=== PATIENT | female | born 1980 | race Caucasian/White ===

== ENCOUNTER 2016-09-29 19:45 | Emergency (ER) | payer OTHER ==
[~2016-09-29] VITALS: Ht 170.2 cm; Wt 144.5 kg
[2016-09-29 19:56] VITALS: BP 149/85; TEMP 98.2
[2016-09-29] MEDS ORDERED: CATAPRES0.2 MG PO (20:00)
[2016-09-29] MEDS ORDERED: SEROQUEL50 MG PO (20:00)
[2016-09-29] MEDS ORDERED: PROZAC 20MG20 MG PO (20:00)
[2016-09-29] MEDS ORDERED: LATUDA40 MG PO (20:00)
[2016-09-29] MEDS ORDERED: MOTRIN 800800 MG/TAB PO (21:21)
[2016-09-29] MEDS ORDERED: FLEXERIL 1010 MG/TAB PO (21:21)
[2016-09-29 21:30] VITALS: PULSE 72
== END 2016-09-29 21:31 | disposition home or self-care (01) ==
LOC: COL.ER 19:45
DX: G89.29 Other chronic pain (principal); M54.6 Pain in thoracic spine; M54.2 Cervicalgia; M54.5 Low back pain; F32.9 Major depressive disorder, single episode, unspecified; F43.10 Post-traumatic stress disorder, unspecified
CPT/HCPCS: J1885; J2360

== ENCOUNTER → 2016-10-02 | Outpatient (REF) ==
[~2016-10-02] MED LIST: CATAPRES0.2 MG PO; FLEXERIL 1010 MG/TAB PO; LATUDA40 MG PO; MOTRIN 800800 MG/TAB PO; PROZAC 20MG20 MG PO; SEROQUEL50 MG PO
[2016-10-02 19:38] LABS: THYROID STIMULATING HORMONE 2.9 uIU/mL (0.465-4.680)
== END ==
LOC: ZLAB.WCH 18:31
DX: Z01.89 Encounter for other specified special examinations (principal)

== ENCOUNTER → 2016-10-08 | Outpatient (REF) ==
[2016-10-08 19:13] LABS: HIV 1/2 Antibodies Non-Reactive; HIV-1p24 Antigen Non-Reactive
== END ==
LOC: ZLAB.WCH 18:14
PROVIDERS: Nurse Practitioner Family
DX: Z01.89 Encounter for other specified special examinations (principal)

== ENCOUNTER → 2017-01-23 | Outpatient (CLI) | payer OTHER | LOC: SUN.DIA 09:19 | DX: E11.9 Type 2 diabetes mellitus without complications (principal); I10 Essential (primary) hypertension; Z68.43 Body mass index [BMI] 50.0-59.9, adult; Z71.3 Dietary counseling and surveillance; F17.210 Nicotine dependence, cigarettes, uncomplicated | CPT/HCPCS: G0108 ==

== ENCOUNTER → 2017-02-26 | Outpatient (CLI) | payer OTHER ==
[~2017-02-26] MED LIST changes: +LATUDA80 MG PO; +PREDNISONE20 MG PO; +PROZAC40 MG PO; +SEROQUEL 1100 MG/TAB PO; +VENTOLIN0.09 MG IH
== END ==
LOC: SUN.DIA 01-23 16:21
DX: E11.9 Type 2 diabetes mellitus without complications (principal); I10 Essential (primary) hypertension; Z68.43 Body mass index [BMI] 50.0-59.9, adult; Z71.3 Dietary counseling and surveillance; F17.210 Nicotine dependence, cigarettes, uncomplicated
CPT/HCPCS: G0108

== ENCOUNTER 2017-09-30 11:11 | Outpatient (RCR) | payer OTHER | END 2017-12-18 | disposition home or self-care (01) | LOC: WSOH | DX: S29.012A Strain of muscle and tendon of back wall of thorax, initial encounter (principal); X50.0XXA Overexertion from strenuous movement or load, initial encounter; Y93.F1 Activity, caregiving, bathing; Y92.121 Bathroom in nursing home as the place of occurrence of the external cause; Y99.0 Civilian activity done for income or pay; F17.210 Nicotine dependence, cigarettes, uncomplicated; Z79.899 Other long term (current) drug therapy ==

== ENCOUNTER 2018-04-04 20:20 | Emergency (ER) | payer OTHER ==
[~2018-04-04] VITALS: Ht 172.7 cm; Wt 159.1 kg
[2018-04-04] MEDS ORDERED: WELLBUTRIN XL300 M1 PO (20:28)
[2018-04-04 21:01] LABS: BASO # 0.1 (0.0-0.2); BASO % 0.5 % (0.0-2.0); EOS # 0.4 (0.0-0.7); EOS % 4.4 % (0-4.0); GRAN # 6.7 (1.4-6.5); GRAN % 69.4 % (42.2-75.2); HEMATOCRIT 43.4 % (37.0-47.0); HEMOGLOBIN 14.2 g/dl (12.5-16.0); LYMPH # 1.7 (1.2-3.4); LYMPH % 17.8 % (20.0-51.0); MEAN CELL VOLUME 100 fl (80.0-100.0); MEAN CORPUSCULAR HEMOGLOBIN 33 pg (27.0-31.0); MEAN CORPUSCULAR HGB CONC 33 g/dl (33.0-37.0); MEAN PLATELET VOLUME 9.5 fl (7.4-10.4); MONO # 0.7 (0.1-0.6); MONO % 7.4 % (1.7-9.3); PLATELET COUNT 279 K/mm3 (130-400); RED BLOOD COUNT 4.33 M/mm3 (4.10-5.30); REDCELL DISTRIBUTION WIDTH-CV 13.2 % (11.5-14.5)
[2018-04-04 21:13] LABS: BILIRUBIN,TOTAL 0.2 mg/dL (0.0-1.0); C-REACTIVE PROTEIN 1.7 mg/dL (0.0-0.9); CALCIUM 8.8 mg/dL (8.4-10.2); CREATININE, serum 0.89 mg/dL (0.52-1.25); POTASSIUM 3.9 mmol/L (3.4-5.0)
[2018-04-04] MEDS ORDERED: PROAIR HFA0.09 MG/AC IH (21:14)
[2018-04-04 21:30] VITALS: TEMP 97.7
[2018-04-04 22:40] VITALS: BP 140/83; PULSE 67
== END 2018-04-04 22:40 | disposition home or self-care (01) ==
LOC: COL.ER 20:20
PROVIDERS: Emergency Medicine
DX: R19.7 Diarrhea, unspecified (principal); I10 Essential (primary) hypertension; R11.2 Nausea with vomiting, unspecified
CPT/HCPCS: J2405; J3010; J7030

== ENCOUNTER 2018-11-28 07:08 | Emergency (ER) | payer OTHER ==
[~2018-11-28] VITALS: Ht 170.2 cm; Wt 143.2 kg
[~2018-11-28 07:08] MED LIST changes: +PROAIR HFA0.09 MG/AC IH; +WELLBUTRIN XL300 M1 PO
[2018-11-28 07:28] VITALS: TEMP 98.1
[2018-11-28] MEDS ORDERED: ATIVAN 1MG T1 MG/TAB PO (07:58)
[2018-11-28] MEDS ORDERED: GLUCOPHAGE500 MG/TAB PO ×2 (08:00→08:03)
[2018-11-28] MEDS ORDERED: PRINIVIL20 MG PO (08:02)
[2018-11-28] MEDS ORDERED: NORVASC2.5 MG PO (08:02)
[2018-11-28 08:04] VITALS: BP 132/86; PULSE 89
== END 2018-11-28 08:12 | disposition home or self-care (01) ==
LOC: COL.ER 07:08
DX: F41.0 Panic disorder [episodic paroxysmal anxiety] (principal); F17.210 Nicotine dependence, cigarettes, uncomplicated; F43.10 Post-traumatic stress disorder, unspecified; Z79.84 Long term (current) use of oral hypoglycemic drugs

== ENCOUNTER 2020-03-14 17:25 | Emergency (ER) | payer OTHER ==
[~2020-03-14] VITALS: Ht 170.2 cm; Wt 154.5 kg
[~2020-03-14 17:25] MED LIST changes: +ATIVAN 1MG T1 MG/TAB PO; +GLUCOPHAGE500 MG/TAB PO; +NORVASC2.5 MG PO; +PRINIVIL20 MG PO
[2020-03-14 17:56] VITALS: TEMP 98.2
[2020-03-14 18:48] LABS: COLLECTION METHOD CLEAN CATCH
[2020-03-14 18:51] LABS: BASO # 0.1 (0.0-0.2); BASO % 0.5 % (0.0-2.0); EOS # 0.5 (0.0-0.7); EOS % 5.7 % (0-4.0); GRAN # 5.9 (1.4-6.5); GRAN % 64.7 % (42.2-75.2); HEMATOCRIT 42.5 % (37.0-47.0); HEMOGLOBIN 13.9 g/dl (12.5-16.0); LYMPH # 2.1 (1.2-3.4); LYMPH % 22.3 % (20.0-51.0); MEAN CELL VOLUME 97 fl (80.0-100.0); MEAN CORPUSCULAR HEMOGLOBIN 32 pg (27.0-31.0); MEAN CORPUSCULAR HGB CONC 33 g/dl (33.0-37.0); MEAN PLATELET VOLUME 9.5 fl (7.4-10.4); MONO # 0.6 (0.1-0.6); MONO % 6.4 % (1.7-9.3); PLATELET COUNT 322 K/mm3 (130-400); RED BLOOD COUNT 4.37 M/mm3 (4.10-5.30); REDCELL DISTRIBUTION WIDTH-CV 12.9 % (11.5-14.5)
[2020-03-14 18:54] LABS: MUCOUS Present /lpf; PH 6 (5-8); SQUAMOUS EPITHELIAL 0-2 /hpf; URINE APPEARANCE Clear; URINE BACTERIA None Seen /hpf; URINE BILIRUBIN Negative (NEGATIVE); URINE BLOOD Negative (NEGATIVE); URINE COLOR Yellow; URINE GLUCOSE Negative (NEGATIVE); URINE KETONE Negative (NEGATIVE); URINE LEUKOCYTE ESTERASE Negative (NEGATIVE); URINE NITRATE Negative (NEGATIVE); URINE PROTEIN(semi-quant) Negative (NEGATIVE); URINE RBC 0-2 /hpf; URINE UROBILINOGEN Negative (NEGATIVE)
[2020-03-14 18:57] LABS: ALBUMIN 4.3 gm/dL (3.5-5.0); BILIRUBIN,TOTAL 0.5 mg/dL (0.0-1.0); CALCIUM 8.9 mg/dL (8.4-10.2); CREATININE, serum 0.69 (0.52-1.25); POTASSIUM 4.2 mmol/L (3.4-5.0); TOTAL PROTEIN 7.2 gm/dL (6.4-8.2)
[2020-03-14 19:48] VITALS: BP 157/90; PULSE 71
== END 2020-03-14 19:49 | disposition home or self-care (01) ==
LOC: COL.ER 17:25
PROVIDERS: Physician Assistant
DX: M25.512 Pain in left shoulder (principal); I10 Essential (primary) hypertension; I95.1 Orthostatic hypotension; F17.200 Nicotine dependence, unspecified, uncomplicated; Z88.8 Allergy status to other drugs, medicaments and biological substances; Z91.040 Latex allergy status; Z79.84 Long term (current) use of oral hypoglycemic drugs

== ENCOUNTER → 2020-05-30 | Outpatient (CLI) | payer OTHER | LOC: COL.RAD 10:30 | DX: K92.1 Melena (principal); R16.0 Hepatomegaly, not elsewhere classified ==

== ENCOUNTER → 2023-07-31 | Outpatient (CLI) | payer OTHER | LOC: MC.RAD 12:58 | DX: Z12.31 Encounter for screening mammogram for malignant neoplasm of breast (principal); N63.10 Unspecified lump in the right breast, unspecified quadrant ==